=== PATIENT | male | born 1995 | race Caucasian/White ===

== ENCOUNTER 2018-09-21 21:27 | Emergency (ER) | payer BC ==
[~2018-09-21] VITALS: Ht 182.9 cm; Wt 81.2 kg
[2018-09-21 21:35] VITALS: Ht 182.9 cm; Wt 81.2 kg
[2018-09-21 22:16] VITALS: BP 107/67
== END 2018-09-21 22:16 | disposition home or self-care (01) ==
LOC: ED 21:27
DX: L03.113 Cellulitis of right upper limb (principal)
CPT/HCPCS: J2930

== ENCOUNTER 2018-09-25 12:58 | Emergency (ER) | payer BC ==
[~2018-09-25] VITALS: Ht 182.9 cm; Wt 81.6 kg
[2018-09-25 13:26] VITALS: Ht 182.9 cm; Wt 81.6 kg
[2018-09-25 15:19] VITALS: BP 110/65
== END 2018-09-25 15:19 | disposition home or self-care (01) ==
LOC: ED 12:58
DX: L02.511 Cutaneous abscess of right hand (principal)
CPT/HCPCS: J2001

== ENCOUNTER 2018-09-27 15:42 | Emergency (ER) | payer BC ==
[~2018-09-27] VITALS: Ht 182.9 cm; Wt 83.9 kg
[2018-09-27 16:31] VITALS: Ht 182.9 cm; Wt 83.9 kg
[2018-09-27 18:34] VITALS: BP 121/62
== END 2018-09-27 18:34 | disposition home or self-care (01) ==
LOC: ED 15:42
DX: L02.413 Cutaneous abscess of right upper limb (principal)